=== PATIENT | male | born 1980 | race Caucasian/White ===

== ENCOUNTER 2017-11-11 07:04 | Emergency (ER) | payer BC ==
[2017-11-11] MEDS ORDERED: Ipratropium 0.5MG/2.5ML NEB* 0.5 MG/2.5 ML NEB.SOLN INH ONE (07:41)
[2017-11-11] MEDS ORDERED: Albuterol 2.5 MG/3 ML NEB.SOL* (0.083%) INH ONE (07:41)
--- NOTE | 2017-11-11 08:41 | RAD ---
INDICATION: Shortness of breath and cough. COMPARISON: There are no prior studies available for comparison. TECHNIQUE: Dual-energy PA and lateral views of the chest were obtained. FINDINGS: The heart is within normal limits in size. Mediastinal and hilar contours appear within normal limits. The lungs are hyperinflated and clear. No pleural effusion is seen. IMPRESSION: FINDINGS CONSISTENT WITH COPD, NO EVIDENCE FOR ACUTE FINDING.
[2017-11-11 09:13] VITALS: BP 174/102
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
== END 2017-11-11 09:07 | disposition left against medical advice (07) ==
LOC: UCEAST 07:04
DX: I10 Essential (primary) hypertension (principal); J40 Bronchitis, not specified as acute or chronic; J32.9 Chronic sinusitis, unspecified; F17.210 Nicotine dependence, cigarettes, uncomplicated
CPT/HCPCS: 36415; 71046; 86703; 87491; 87591; 93005; 99212; G0463

== ENCOUNTER 2017-12-02 07:01 | Emergency (ER) | payer BC ==
[2017-12-02 07:10] VITALS: BP 175/114
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
== END 2017-12-02 07:45 | disposition home or self-care (01) ==
LOC: UCEAST 07:01
DX: S62.347A Nondisplaced fracture of base of fifth metacarpal bone, left hand, initial encounter for closed fracture (principal); W22.09XA Striking against other stationary object, initial encounter; Y93.89 Activity, other specified; Y92.9 Unspecified place or not applicable; I10 Essential (primary) hypertension; Z82.49 Family history of ischemic heart disease and other diseases of the circulatory system; Z83.6 Family history of other diseases of the respiratory system; F17.210 Nicotine dependence, cigarettes, uncomplicated
CPT/HCPCS: 99212; G0463